=== PATIENT | female | born 1960 | race Caucasian/White ===

== ENCOUNTER → 2022-09-07 | Outpatient (CLI) | payer BC ==
[~2022-09-07] VITALS: Ht 165.1 cm; Wt 81.8 kg
[~2022-09-07] MED LIST: LIDOCAINE 1% INJ 30 ML (XYLOCAINE) VIAL INJ ONE
--- NOTE | 2022-09-07 12:00 | Diagnostic Imaging Report ---
INDICATION: Right lobe thyroid nodule. Patient presents for ultrasound-guided fine-needle aspiration. Patient was brought to the procedure room and placed on table in the supine position. Ultrasound imaging of the right neck was performed to evaluate appropriate entry site. Right neck was then prepped and draped in the usual sterile fashion. A small amount of 1% lidocaine was utilized for local anesthesia. Four passes were made through the dominant solid mass in the right lobe of the thyroid utilizing 25-gauge needles and fine-needle aspiration technique. Needle was removed, and hemostasis was obtained. Patient tolerated the procedure well. IMPRESSION: Successful ultrasound-guided fine-needle aspiration of the dominant solid nodule in the right lobe of the thyroid. Pathology results are currently pending. Dictated by: Dictated on workstation # [id number]
--- NOTE | 2022-09-07 12:06 | Diagnostic Imaging Report ---
INDICATION: Left lobe thyroid nodule. PROCEDURE: The patient presents for ultrasound-guided fine-needle aspiration. The patient was brought to the procedure room and placed on the table in the supine position. Ultrasound imaging of the left neck was performed to evaluate appropriate entry site. Left neck was then prepped and draped in the usual sterile fashion. A small amount of 1% lidocaine was utilized for local anesthesia. Four passes were made into the dominant solid hypoechoic nodule left lobe of the thyroid which does contain small cysts with 25-gauge needles and utilizing fine-needle aspiration technique. Needle was removed and hemostasis was obtained. The patient tolerated the procedure well and left the department in stable condition. IMPRESSION: Successful ultrasound-guided fine-needle aspiration of the dominant solid nodule left lobe of the thyroid. Pathology results are currently pending. Dictated by: Dictated on workstation # [id number]
== END ==
LOC: RAD 10:45
PROVIDERS: ATTEND Otolaryngology Otolaryngology/Facial Plastic Surgery
DX: E04.2 Nontoxic multinodular goiter (principal)